=== PATIENT | female | born 1985 | race Caucasian/White ===

== ENCOUNTER 2016-10-25 09:02 | Emergency (ER) | payer OTHER ==
[~2016-10-25] VITALS: Ht 157.5 cm; Wt 67.9 kg
[~2016-10-25 09:02] MED LIST: FERR27TA PO; PREN1TAB17 PO; PREN1TAB49 PO; URSO250T10 PO; [UNRECOGNIZED DRUG - REMARK]; [UNRECOGNIZED DRUG - REMARK]
[2016-10-25 09:05] VITALS: Ht 157.5 cm; Wt 67.9 kg
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
[2016-10-25 10:52] LABS: ALBUMIN 3.7 g/dl (3.3-4.9)
[2016-10-25 10:53] LABS: POTASSIUM 3.9 mmol/L (3.5-5.1)
[2016-10-25 10:55] LABS: ALBUMIN/GLOBULIN RATIO 1.15; BILIRUBIN,INDIRECT 0.4 mg/dl (0-1.1); BILIRUBIN,TOTAL 0.4 mg/dl (0.2-1.3); CREATININE 0.45 mg/dl (0.44-1.00); TOTAL PROTEIN 6.9 g/dl (6.1-8.1)
[2016-10-25 10:56] LABS: CALCIUM 8.7 mg/dl (8.4-10.2)
[2016-10-25 11:12] LABS: URINE BLOOD (Dip) POC 2+ (NEGATIVE)
[2016-10-25 11:29] LABS: BASOPHILS % 0.3 % (0.0-2.0); EOSINOPHILS # 0.2 10^3/ul (0.0-0.5); EOSINOPHILS % 1.9 % (0.0-7.0); HEMATOCRIT 37.9 % (37.0-47.0); HEMOGLOBIN 12.7 g/dl (12.0-16.0); LYMPHOCYTES # 2.1 10^3/ul (0.8-2.9); LYMPHOCYTES % 22.4 % (15.0-51.0); MEAN CORPUSCULAR HEMOGLOBIN 27.7 pg (29.0-33.0); MEAN CORPUSCULAR HGB CONC 33.5 g/dl (32.0-37.0); MEAN CORPUSCULAR VOLUME 82.7 fl (82.0-101.0); MEAN PLATELET VOLUME 8.9 fl (7.4-10.4); MONOCYTE # 0.6 10^3/ul (0.3-0.9); MONOCYTES % 6.6 % (0.0-11.0); NEUTROPHIL # 6.4 10^3/ul (1.6-7.5); NEUTROPHILS % 68.8 % (39.0-77.0); PLATELET COUNT 265 10^3/UL (140-440); RED BLOOD COUNT 4.58 10^6/ul (4.20-5.40); RED CELL DISTRIBUTION WIDTH 12.8 % (11.5-14.5); UNCORRECTED WBC 9.3 10^3/ul (4.8-10.8); WHITE BLOOD COUNT 9.3 10^3/ul (4.8-10.8)
[2016-10-25 11:34] LABS: CONDITION 1
[2016-10-25] MEDS ORDERED: ACETAMINOPHEN 500 MG TAB PO STA (11:58)
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
[2016-10-25] MEDS ORDERED: ACET500C5 PO (12:36)
[2016-10-25] MEDS ORDERED: AMOX1TAB10 PO (12:41)
== END 2016-10-25 13:00 | disposition home or self-care (01) ==
LOC: FTE 09:02
DX: H05.221 Edema of right orbit (principal); Y04.0XXA Assault by unarmed brawl or fight, initial encounter; Z33.1 Pregnant state, incidental
CPT/HCPCS: 36415; 70480; 80053; 81003; 85025; Z7502

== ENCOUNTER 2018-02-19 22:53 | Emergency (ER) | END 2018-02-20 01:12 | disposition home or self-care (01) ==